=== PATIENT | female | born 1990 | race Caucasian/White ===

== ENCOUNTER 2022-06-18 14:38 | Outpatient (REF) | payer MEDICAID, SELFPAY ==
[2022-06-18 21:31] LABS: C & S Indicated? C&S Done As Ordered; RBC >50 HPF (0-2)
== END 2022-06-18 14:39 | disposition home or self-care (01) ==
LOC: LBN 14:38
PROVIDERS: Visit Provider Physician Assistant Medical
DX: N39.0 Urinary tract infection, site not specified (principal)
CPT/HCPCS: 81015; 87086

== ENCOUNTER 2022-06-23 21:20 | Emergency (ER) | payer MEDICAID, SELFPAY ==
[2022-06-23 21:26] VITALS: BP 111/62; PULSE 77; RESP 16; TEMP 36.7; O2SAT 98
--- NOTE | 2022-06-23 21:30 | DI.RAD_ITS ---
Exam(s) XR ANKLE RT COMPLETE EXAM: XR ANKLE RT COMPLETE CLINICAL HISTORY: Right ankle pain TECHNIQUE: COMPARISON: No exams were available for comparison FINDINGS: Three views were obtained. There is no evidence of acute fracture or dislocation. IMPRESSION: RADIATION DOSE DELIVERED: Total DLP
--- NOTE | 2022-06-23 21:38 | ED.GENADUL_ITS ---
Discharge Plan Disposition Patient Disposition: HOME Condition: Stable Discharge Details Clinical Impression: Ankle sprain Primary Care Provider: Unknown,Unknown ED Provider: Fatoumata Brewster Home Meds and New Rx's Prescriptions: No Action cefuroxime axetil 500 mg Tablet 500 mg PO BID Discharge Instructions Instructions: Ankle Sprain (ED) Additional Instructions: X-rays show no acute bony abnormality. I do suspect you have a sprain. Wear the splint as directed and use the crutches as needed for comfort. Toe-touch weightbearing, advance as tolerated. Rest ice compression elevation. Please take Tylenol or Ibuprofen with food every 4-6 hours as needed for pain and swelling. Follow up with primary care provider in 3-5 days. Return to ED sooner if any worsening or concerns. Increase oral fluids. Medical Decision Making Urine Preg and ankle x-ray ordered. Patient has ice pack in place Imaging Data Radiologic Study: Imaging: X-Ray Radiologist's impression: TECHNIQUE: Imaging protocol: Radiologic exam of the Right ankle. Views: 3 or more views. COMPARISON: No relevant prior studies available. FINDINGS: Bones/joints: Normal. Soft tissues: Normal. IMPRESSION: No acute findings. HPI General Mode of arrival: ambulatory . Date/Time Provider Initiated Documentation: 06/23/22 21:20 . Limitations to Documentation: no limitations . Information obtained by: patient, RN notes reviewed and old records reviewed . HPI Narrative: 32-year-old female presents to the ER with chief complaint of right ankle pain status post rockclimbing where she heard a pop. She is complaining of lateral malleolus tenderness and pain with weightbearing. She did take ibuprofen prior to arrival. She denies any falls or any other injuries. No obvious deformity noted there is slight swelling surrounding the lateral malleolus. Achilles tendon appears to be intact. Related Data Home Medications Medication Instructions Recorded Confirmed cefuroxime axetil 500 mg tablet 500 mg PO BID 06/23/22 06/23/22 Allergies Allergy/AdvReac Type Severity Reaction Status Date / Time No Known Allergies Allergy Unverified 06/23/22 21:31 General Stated Complaint: Orthopedic MUNIR: 4 Review of Systems Musculoskeletal Musculoskeletal: Reports as per HPI, Reports arthralgias and Reports joint swelling PFSH All Active Problems (Updated 06/23/22 @ 22:17 by Fatoumata Brewster NP) Ankle sprain (Acute) Social History Smoking/Tobacco Use Status: Current every day Tobacco Type: cigarettes Smoking risk assessment performed?: Yes Drug use: Occasionally Substance use type: marijuana Exam Extrem Right lower extremity: ankle Details: normal to inspection, tenderness and swelling; no penetrating wound and achilles tendon exam normal Course Vital Signs Vital signs: Vital Signs Temperature 36.7 C 06/23/22 21:26 Pulse 77 06/23/22 21:26 Respiratory Rate 16 06/23/22 21:26 Blood Pressure 111/62 06/23/22 21:26 Pulse Oximetry 98 06/23/22 21:26 Temperature 36.7 C 06/23/22 21:26 Temperature Source Temporal Artery Scan 06/23/22 21:26 Pulse 77 06/23/22 21:26 Respiratory Rate 16 06/23/22 21:26 Respiratory Effort 06/23/22 21:26 Blood Pressure 111/62 06/23/22 21:26 Blood Pressure Position Sitting 06/23/22 21:26 Pulse Oximetry 98 06/23/22 21:26 Oxygen Delivery Method Room Air 06/23/22 21:26 Oxygen Flow Rate 0 06/23/22 21:26 Pain Level 8 06/23/22 21:26
--- NOTE | 2022-06-23 22:13 | DI.VRAD_ITS ---
PROCEDURE INFORMATION: Exam: XR Right Ankle Exam date and time: 06/23/2022 9:55 PM Age: 32 years old Clinical indication: Right; Patient HX: R ankle pain, heard a pop, difficulty bearing weight TECHNIQUE: Imaging protocol: Radiologic exam of the Right ankle. Views: 3 or more views. COMPARISON: No relevant prior studies available. FINDINGS: Bones/joints: Normal. Soft tissues: Normal. IMPRESSION: No acute findings. Dictated and Authenticated by: Noble Alford MD. Ordering:LES Ham MD
[2022-06-23 22:38] VITALS: BP 122/63; PULSE 70; RESP 20; O2SAT 98
== END 2022-06-23 22:41 | disposition home or self-care (01) ==
PROVIDERS: Emergency Provider Registered Nurse Emergency
DX: S93.401A Sprain of unspecified ligament of right ankle, initial encounter (principal); X50.9XXA Other and unspecified overexertion or strenuous movements or postures, initial encounter
CPT/HCPCS: 29515; 81025; 99283; 73610; 99282

== ENCOUNTER 2022-10-28 14:14 | Outpatient (REF) | payer MEDICAID, SELFPAY ==
--- NOTE | 2022-10-28 08:45 | PAPFT_PTH ---
PATIENT: Anais Price I LOC: [facility] U#:[id number] AGE/SX: 32/F ROOM: RE10/28/[address]: Floyd Christianson : 1990 BED: DIS: 10/28/2022 SPEC #: [id number] RECD: 10/28/22 17:29 STATUS: TORSTEN CASIANO #: [id number] HEMANTH: 10/28/22 08:[address]: Floyd Christianson DEPT: [facility] Cytology RECD BY: Leslie Washington Tissues: 1 - CX/ENDOCX FOR PAP SMEARS Procedures: PAP THIN PREP/UVM Screening HPV DNA PROBE Comments: [id number] (CHLAMYDIA/GC)
[2022-10-29 13:01] LABS: Chlamydia Result Negative (Negative); GC Result Negative (Negative)
== END 2022-10-28 14:15 | disposition home or self-care (01) ==
LOC: NCHCN 14:14
PROVIDERS: Visit Provider Family Medicine
DX: Z12.4 Encounter for screening for malignant neoplasm of cervix (principal); Z11.3 Encounter for screening for infections with a predominantly sexual mode of transmission; Z11.4 Encounter for screening for human immunodeficiency virus [HIV]
CPT/HCPCS: 87491; 87591; 88142; 87624

== ENCOUNTER 2023-10-29 15:22 | Outpatient (REF) | payer MEDICAID, SELFPAY ==
--- NOTE | 2023-10-29 10:30 | PAPFT_PTH ---
PATIENT: Anais Price I LOC: [facility]#:[id number] AGE/SX: 33/F ROOM: RE10/29/[address]: La Norris : 1990 BED: DIS: 10/29/2023 SPEC #: [id number] RECD: 10/29/23 18:13 STATUS: TORSTEN RETia #: [id number] HEMANTH: 10/29/23 10:[address]: La Norris DEPT: [facility]–1983 Cytology RECD BY: Leslie Washington ENTERED: 10/29/23 18:13 SP TYPE: PAPFT OTHR DR: Floyd Christianson Tissues: 1 - CX/ENDOCX FOR PAP SMEARS Procedures: PAP THIN PREP/UVM Screening HPV DNA PROBE Comments: [id number]
== END 2023-10-29 15:23 | disposition home or self-care (01) ==
LOC: NCHCN 15:22
PROVIDERS: PCP Family Medicine; Referring Provider Family Medicine; Visit Provider Family Medicine
DX: Z00.00 Encounter for general adult medical examination without abnormal findings (principal); Z01.419 Encounter for gynecological examination (general) (routine) without abnormal findings
CPT/HCPCS: 88142; 87624

== ENCOUNTER → 2023-11-04 00:47 | Outpatient (CLI) | payer MEDICAID, SELFPAY ==
--- NOTE | 2023-11-04 | DI.US_ITS ---
Exam(s) US PELVIS TRANSVAGINAL EXAM: US PELVIS TRANSVAGINAL CLINICAL HISTORY: LLQ/ADNEXAL PAIN,R10.32. TECHNIQUE: Transabdominal and transvaginal pelvic ultrasound was performed using standard protocol. COMPARISON: No exams were available for comparison FINDINGS: UTERUS: Position: Anteverted. Size: 7.4 long by 6.4 AP by 7.4 transverse cm Endometrium: 0.4 cm. Normal for patient's menstrual status. Myometrium: There is a uterine fibroid measuring 3.5 x 3.7 x 5.3 cm. It is intramural and to the rig ht in the body. Cervix: Unremarkable. OVARIES: Right: 2.5 x 2.3 x 3.3 cm Cyst or mass: No suspicious cystic or solid masses. Left: 4.1 x 2.6 x 2.3 cm Cyst or mass: No suspicious cystic or solid masses. DOPPLER: Color: Symmetric and uniform flow to both ovaries. CUL-DE-SAC: Free fluid: None. Other: None. IMPRESSION: 1. 3.5 x 3.7 x 5.3 cm uterine fibroid. 2. Unremarkable bilateral ovaries. DATA REPOSITORY:
== END ==
PROVIDERS: PCP Family Medicine; Visit Provider Family Medicine
DX: D25.9 Leiomyoma of uterus, unspecified (principal)
CPT/HCPCS: 76830; 76856

== ENCOUNTER → 2024-02-23 00:28 | Outpatient (CLI) | payer MEDICAID, SELFPAY ==
--- NOTE | 2024-02-23 12:20 | DI.US_ITS ---
Exam(s) US OB 1ST TRIMESTER EXAM: US OB 1ST TRIMESTER CLINICAL HISTORY: INCIDENTAL ,Z33.1. COMPARISON: US US PELVIS TRANSVAGINAL from 11/04/2023 TECHNIQUE: Transabdominal Transvaginal first trimester obstetrical ultrasound performed. FINDINGS: Sonographic images demonstrate a single intrauterine gestation. A yolk sac and pole are seen. Sonographically assessed gestational age based upon crown-rump length of 0.3 cm is: 10 weeks Estimated date of delivery based on this ultrasound is: 09/20/2024 heart rate motion is Dopplered at: 167 bpm. motion was detected. There is a 1.8 x 0.5 x 1.3 cm subchorionic hemorrhage. No free fluid identified. Both ovaries appear sonographically normal. Pelvic Measurments Uterus: 12.2 cm long. There are several uterine fibroids. The largest is seen to the right in the a nterior body and measures 4.8 x 4.9 x 6.0 cm. There is a fibroid on the left of the body measuring 1 .3 x 1.2 x 1.3 cm. There is a fibroid seen on the right which measures 2.4 x 3.2 x 3.1 cm. Rt Ovary: 3.8 x 2.1 x 1.5 cm Lt Ovary: 4.3 x 2.4 x 4.0 cm IMPRESSION: 1. Single live intrauterine gestation as above. 2. Fibroid uterus. 3. Small subchorionic hemorrhage. DATA REPOSITORY:
== END ==
PROVIDERS: PCP Family Medicine; Visit Provider Family Medicine
DX: Z3A.10 10 weeks gestation of pregnancy (principal); D25.9 Leiomyoma of uterus, unspecified; O20.9 Hemorrhage in early pregnancy, unspecified
CPT/HCPCS: 76801

== ENCOUNTER 2024-02-24 11:37 | Outpatient (CLI) | payer MEDICAID, SELFPAY ==
[2024-02-24 12:19] LABS: Abs Immature Grans 0.04 10^3/uL (0.0-0.06); Absolute Basophil Count 0.04 10^3/uL (0.0-0.2); Absolute Lymphocyte Count 1.59 10^3/uL (1.2-3.4); Absolute Monocyte Count 0.69 10^3/uL (0.1-0.8); Absolute Neutrophil Count 7.82 10^3/uL (1.2-6.7); Basophils % 0.4 %; HCT 34.9 % (36.0-46.0); HGB 11.7 g/dL (11.2-15.7); Immature Grans % 0.4 %; Lymphocytes % 15.5 %; MCH 30.1 pg (27.0-33.0); MCHC 33.5 % (32.0-36.0); MCV 90 fL (80-95); MPV 8.9 fL (8.0-11.0); Monocytes % 6.7 %; Platelet Count 301 10^3/uL (130-400); RBC 3.89 10^6/uL (3.93-5.22); RDW 12.6 % (11.7-14.6); RDW-SD 41.2 fL; WBC 10.28 10^3/uL (4.4-10.8)
[2024-02-24 12:20] LABS: Bilirubin Negative (Negative); Blood Small (Negative); Clarity Clear (Clear); Glucose Negative (Negative); Ketones Negative (Negative); Leukocyte Esterase Negative (Negative); Nitrite Negative (Negative); Urobilinogen 0.2 mg/dL (Up to 0.2); pH 5.5 (5-8)
[2024-02-24 12:28] LABS: Bacteria Few HPF (Negative); C & S Indicated? C&S Done As Ordered; Casts Negative LPF (Negative); Crystals Negative HPF (Negative); Epithelial Cells Few HPF (Negative); Mucus Negative (Negative)
[2024-02-24 23:35] LABS: HIV-1/2 Ag & Ab Screen Negative (Negative)
[2024-02-25 08:56] LABS: Hepatitis B Surface Ag Negative (Negative)
[2024-02-25 09:37] LABS: Hepatitis C Ab w Rflx HCV PCR Negative (Negative)
[2024-02-25 14:39] LABS: Chlamydia Result Negative (Negative); GC Result Negative (Negative)
[2024-02-28 13:51] LABS: Rubella IgG Ab (UVM) Positive (See Note); Syphilis Serology (RPR) Negative (Negative)
[2024-02-28 17:15] LABS: Specimen WB Whole Blood
[2024-03-06 15:55] LABS: Result Summary NEGATIVE; Specimen WB Whole Blood
[2024-03-14 21:02] LABS: Result Summary NEGATIVE; Specimen WB Whole Blood
== END 2024-02-24 11:38 | disposition home or self-care (01) ==
LOC: LBO 11:37
PROVIDERS: PCP Family Medicine; Visit Provider Family Medicine
DX: Z3A.10 10 weeks gestation of pregnancy (principal); Z33.1 Pregnant state, incidental
CPT/HCPCS: 36415; 81220; 81222; 81329; 86803; 86900; 86901; 87340; 87389; 87491; 87591; 81003; 81015; 81243; 83891; 83892; 83894; 83896; 83897; 83898; 85025; 86592; 86762; 86765; 87086

== ENCOUNTER 2024-03-29 13:24 | Emergency (ER) | payer MEDICAID, SELFPAY ==
[2024-03-29 13:27] VITALS: BP 118/62; PULSE 84; RESP 18; TEMP 37; O2SAT 97
--- NOTE | 2024-03-29 14:01 | ED.GENADUL_ITS ---
Discharge Plan Disposition Patient Disposition: Home Condition: Good Discharge Details Clinical Impression: Vaginal bleeding, History of induced Primary Care Provider: Floyd Christianson ED Provider: Alicia Carpenter Home Meds and New Rx's Prescriptions: Continued hydroxyzine HCl 25 mg tablet 25 mg PO TID PRN sertraline 50 mg tablet 50 mg PO DAILY Patient Comments: TAKE ONE TABLET BY MOUTH EVERY DAY Discharge Instructions Additional Instructions: Your labs are reassuring as we discussed. It does appear that you have passed products of conception, likely your bleeding will begin to subside. Please use the pads and avoid tampons. Please continue to encourage hydration. Please continue to surround yourself with supportive individuals, continue with your therapy medications and care with your psychologist. Dr. Boyer has ordered a repeat hCG for next week and is scheduling a follow-up with [facility]. If you develop any fever/chills, abdominal pain, inability stay hydrated, increased bleeding, thoughts of self harm or other new/worsening symptom please seek care urgently once again. Referrals: Marisel Boyer MD [ [facility] STAFF PHYSICIAN] - [facility] General Date/Time Provider Initiated Documentation: 03/29/24 13:26 . Limitations to Documentation: no limitations . Information obtained by: patient, family, RN notes reviewed and old records reviewed . History of Present Illness 34 year old F presents to the emergency department with the chief complaint of Vaginal bleeding status post induced , described as moderate, and is localized to the genitals. Patient started experiencing this week(s) and it has been constant. No relieving factors improve symptom(s), No exacerbating factors reported . Patient notes malaise (Reports general fatigue); denies chest pain, diaphoresis, fever/chills, headaches, nausea/vomiting, rash, shortness of breath and weakness. Patient did receive the following treatments prior to arrival, none Related Data Home Medications ?Medication ?Instructions ?Recorded ?Confirmed hydroxyzine HCl 25 mg tablet 25 mg PO TID PRN 11/04/22 03/29/24 sertraline 50 mg tablet 50 mg PO DAILY 03/29/24 03/29/24 Allergies Allergy/AdvReac Type Severity Reaction Status Date / Time No Known Allergies Allergy Unverified 03/29/24 13:31 General Stated Complaint: [facility] MUNIR: 3 Review of Systems Constitutional Constitutional: Reports as per HPI, Denies chills, Denies fever(s) and Denies headache(s) ENT Ears, Nose, Mouth, and Throat: Denies headache(s) Cardiovascular Cardiovascular: Reports as per HPI, Denies chest pain and Denies dyspnea Respiratory Respiratory: Reports as per HPI, Denies cough and Denies dyspnea Gastrointestinal Gastrointestinal: Reports as per HPI Musculoskeletal Musculoskeletal: Reports as per HPI and Denies back pain Integumentary/Breasts Skin/Breast: Reports as per HPI and Denies rash Neurologic Neurologic: Reports as per HPI and Denies headache(s) Exam Const General: cooperative, healthy appearing, comfortable, no acute distress, well developed and anxious Nutritional Appearance: average body habitus and well nourished Orientation: alert and awake HENMT Head: normal to inspection Mouth: moist mucous membranes Resp Effort & Inspection: normal respiratory effort, able to speak in complete sentences and no respiratory distress Auscultation: clear to auscultation bilaterally, no rales, no rhonchi and no wheezes Cardio Rate: regular rate Rhythm: regular rhythm Heart Sounds: S1 normal and S2 normal GI Inspection: normal to inspection Palpation: soft, no guarding, no masses, no pulsatile masses, no splenomegaly and nontender Percussion: normal to percussion Auscultation: normal bowel sounds Back/Spine/Pelvis Back: no CVA tenderness Skin General skin exam: no rashes or lesions noted Trauma: no lacerations or abrasions Neuro General: patient alert and patient awake Cognition: normal cognition Speech: speech normal Gait: normal gait Psych Appearance: grossly normal and well kempt Mental Status: mental status grossly normal Speech and Movement: speech and movement normal Mood: anxious mood Affect: sad Attitude: cooperative Thought Process: normal Thought Content: normal Insight: fair Judgment: judgment good Course Vital Signs Vital signs: Vital Signs Temperature 37.0 C 03/29/24 13:27 Pulse 84 03/29/24 13:27 Respiratory Rate 18 03/29/24 13:27 Blood Pressure 118/62 03/29/24 13:27 Pulse Oximetry 97 03/29/24 13:27 Temperature 37.0 C 03/29/24 13:27 Pulse 84 03/29/24 13:27 Respiratory Rate 18 03/29/24 13:27 Blood Pressure 118/62 03/29/24 13:27 Pulse Oximetry 97 03/29/24 13:27 Oxygen Delivery Method Room Air 03/29/24 13:27 Oxygen Flow Rate 0 03/29/24 13:27 Medical Decision Making Patient is a pleasant 34-year-old female with past medical history significant for depression and anxiety, presenting with chief complaint of vaginal bleeding. Patient reports that she underwent a medically induced on February 28. States there is still medication, take these at home. Began having vaginal bleeding with about 1 hour of taking the medications. Patient had estimated gestational age of 11-12wks at that time. She has had persistant vaginal bleeding since then. States she is using maxi pads or heavy tampons for bleeding. States yesterday sh eexperienced cramping, this discomfort was more on imelda right side. Denies fevers/chills, change in appetite, GI upset. States she has been slightly dizzy which is only slightly worse than her baseline. Has not yet taken home PG tests s/p induced , has not had passage of products that she is aware of, has been looking for this. On exam, patient appears nontoxic, she does appear anxious. Became very tearful, is sad about what is going on. Her abdomen is nontender. No CVA tenderness. Her lungs are clear, normal cardiac exam. Patient reports that she recently started antidepressants, started working with a psychologist. Is now living with her parents and attempt to be safer and be around supportive people. She denies any SI. No HI. Feels like she is getting good support and does not feel that she needs further evaluation mental health at this time. Primarily concerned, particularly given the bleeding since her induced , that she may have retained products of conception. Bedside ultrasound was performed myself and I do note an enlarged uterus, some free fluid in the uterine lining and question of remnant products. Will obtain a quantitative hCG, CBC to evaluate for anemia, type and screen, CMP. Discussed with patient. Consulted with Dr. Boyer who evaluated the patient, he is not likely she will need to go to the OR for D&C as that she has a closed cervical os butAn enlarged uterus on bedside exam. however, does not believe that this necessarily has to be done today as there is no evidence to suggest hemorrhage or septic . Will obtain labs and discuss with her once again. Labs reviewed. No leukocytosis. Stable H&H. CMP without significant abnormalities. Her hCG is 8. Patient is Rh+. Dr. Boyer at bedside once again. With this level quant, she advises that likely this is just prolonged bleeding post induced . She does not feel the D&C is warranted at this time. She will order a repeat hCG in 1 week and also arrange for follow-up with outpatient [facility] the same day to discuss results. Patient I discussed continued management. Advised against continue with tampons and encouraged that she continue with pads. We also discussed her overall mental health. She is living with supportive individuals, has sought the care of a psychologist, therapist and started antidepressants. I encouraged she continue with this and let her know that we are able to assist with further intervention if warranted. I encouraged she continue with care with women's wellness. Return precautions were discussed. All of her questions and concerns were addressed and she is in agreement this plan. Patient and her mother feel safe with this plan. 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
[2024-03-29 14:50] LABS: Abs Immature Grans 0.02 10^3/uL (0.0-0.06); Absolute Basophil Count 0.04 10^3/uL (0.0-0.2); Absolute Eosinophil Count 0.19 10^3/uL (0.0-0.7); Absolute Lymphocyte Count 1.83 10^3/uL (1.2-3.4); Absolute Monocyte Count 0.62 10^3/uL (0.1-0.8); Absolute Neutrophil Count 5.31 10^3/uL (1.2-6.7); Basophils % 0.5 %; Eosinophils % 2.4 %; Immature Grans % 0.2 %; Lymphocytes % 22.8 %; MCH 30.5 pg (27.0-33.0); MCHC 34.3 % (32.0-36.0); MCV 89 fL (80-95); MPV 9.2 fL (8.0-11.0); Monocytes % 7.7 %; Neutrophils % 66.4 %; Platelet Count 283 10^3/uL (130-400); RBC 3.93 10^6/uL (3.93-5.22); RDW 12.9 % (11.7-14.6); RDW-SD 42.3 fL; WBC 8.01 10^3/uL (4.4-10.8)
[2024-03-29 15:24] LABS: ALT 28 U/L (14-59); AST 15 U/L (15-37); Albumin 3.7 g/dL (3.4-5.0); Alkaline Phosphatase 48 U/L (46-116); Anion Gap 8.4 mmol/L (3-11); BUN 8 mg/dL (7-18); Bilirubin, Total 0.27 mg/dL (0.2-1.0); CO2 28.6 mmol/L (21.0-32.0); Calcium 8.9 mg/dL (8.5-10.1); Chloride 109 mmol/L (98-107); Estimated GFR 74.88 (mL/min/1.73m2); Glucose 100 mg/dL (74-106); HCG Quant, Pregnancy 8 mIU/mL (1-3); Potassium 3.8 mmol/L (3.5-5.1); Sodium 146 mmol/L (136-145); Total Protein 6.9 g/dL (6.4-8.2)
[2024-03-29 16:27] VITALS: BP 120/68; PULSE 78; RESP 16; TEMP 36.6; O2SAT 98
== END 2024-03-29 16:16 | disposition home or self-care (01) ==
PROVIDERS: Emergency Provider Physician Assistant; PCP Family Medicine
DX: N93.9 Abnormal uterine and vaginal bleeding, unspecified (principal); Z98.890 Other specified postprocedural states
CPT/HCPCS: 36415; 80053; 86850; 86900; 86901; 99283; 84702; 85025

== ENCOUNTER 2025-04-23 17:47 | Outpatient (REF) | payer MEDICAID, SELFPAY ==
[2025-04-23 15:13] LABS: HCT 37.1 % (36.0-46.0); HGB 12.5 g/dL (11.2-15.7); MCH 29.6 pg (27.0-33.0); MCHC 33.7 % (32.0-36.0); MCV 88 fL (80-95); MPV 9.7 fL (8.0-11.0); Platelet Count 300 10^3/uL (130-400); RBC 4.22 10^6/uL (3.93-5.22); RDW 12.9 % (11.7-14.6); RDW-SD 41.3 fL; WBC 5.82 10^3/uL (4.4-10.8)
[2025-04-23 15:22] LABS: HCG Qual (Serum) Negative
[2025-04-23 17:32] LABS: ALT 24 U/L (14-59); AST 16 U/L (15-37); Albumin 4.2 g/dL (3.4-5.0); Alkaline Phosphatase 47 U/L (46-116); Anion Gap 5.5 mmol/L (3-11); BUN 11 mg/dL (7-18); Bilirubin, Total 0.6 mg/dL (0.2-1.0); CO2 29.5 mmol/L (21.0-32.0); Calcium 10.0 mg/dL (8.5-10.1); Chloride 103 mmol/L (98-107); Estimated GFR 114.16 (mL/min/1.73m2); Glucose 85 mg/dL (74-106); Potassium 4.4 mmol/L (3.5-5.1); Sodium 138 mmol/L (136-145); TSH 1.29 uIU/mL (0.36-3.74); Total Protein 7.3 g/dL (6.4-8.2)
== END 2025-04-23 17:48 | disposition home or self-care (01) ==
LOC: NCHCN 17:47
PROVIDERS: PCP Family Medicine; Visit Provider Family Medicine
DX: R55 Syncope and collapse (principal)
CPT/HCPCS: 80053; 85027; 84443; 84703